=== PATIENT | female | born 1965 | race Caucasian/White ===

== ENCOUNTER 2025-03-12 07:53 | Outpatient (REF) | payer MEDICARE, MEDICAID, SELFPAY ==
--- NOTE | ~2025-03-12 | US_ITS ---
EXAMINATION: US LOWER EXTREMITY VENOUS (REFLUX EXAM), BILATERAL CLINICAL INFORMATION: Edema, lower extremities. COMPARISON: None. TECHNIQUE: Color flow triplex imaging and compression Doppler was performed to evaluate both the deep and the superficial systems bilaterally. To evaluate the superficial system, the examination was performed in the upright position. Color-flow Doppler ultrasound and compression ultrasound were utilized. In addition, maneuvers were utilized to demonstrate reflux. FINDINGS: 1. DEEP VENOUS ULTRASOUND OF THE RIGHT LOWER EXTREMITY: Common Femoral Vein: Compressible, normal respiratory variation and augmented flow. Femoral Vein: Compressible, normal color flow and augmentation. Popliteal Vein: Compressible, normal augmentation. Deep Reflux: There is no evidence of reflux in the deep system in either the common femoral vein, superficial femoral or the popliteal vein. There is no evidence of a Langley's cyst. 2. SUPERFICIAL ULTRASOUND WITH DOPPLER OF RIGHT LOWER EXTREMITY: GREAT SAPHENOUS VEIN: Saphenofemoral Junction: 0.7 cm; Reflux: 0 ms Proximal Thigh: 0.7 cm; Reflux: 0 ms Mid Thigh: 0.3 cm; Reflux: 0 ms Distal Thigh: 0.3 cm; Reflux: 0 ms At Knee: 0.2 cm; Reflux: 0 ms Proximal Calf: 0.2 cm; Reflux: 0 ms Mid Calf: 0.2 cm; Reflux: 0 ms Distal Calf: 0.2 cm; Reflux: 0 ms DUPLICATED MEDIAL GREAT SAPHENOUS VEIN: Diameter: None imaged Reflux: NA DUPLICATED LATERAL GREAT SAPHENOUS VEIN: Diameter: None imaged Reflux: NA SMALL SAPHENOUS VEIN: Saphenopopliteal Junction: 0.15 cm; Reflux: 0 ms Proximal: 0.12 cm; Reflux: 0 ms Distal: 0.2 cm; Reflux: 0 ms VEIN OF GIACOMINI: Size: 0.15 cm. Reflux: NA PERFORATORS: Location: Proximal to mid calf. Size: 0.1-0.2 cm. Reflux: NA VARICOSITIES: Location: Mid thigh. Size: 0.4 cm. Reflux: NA 3. DEEP VENOUS ULTRASOUND OF THE LEFT LOWER EXTREMITY: Common Femoral Vein: Compressible, normal respiratory variation and augmented flow. Femoral Vein: Compressible, normal color flow and augmentation. Popliteal Vein: Compressible, normal augmentation. Deep Reflux: There is no evidence of reflux in the deep system in either the common femoral vein, superficial femoral or the popliteal vein. There is no evidence of a Langley's cyst. 4. SUPERFICIAL ULTRASOUND WITH DOPPLER OF LEFT LOWER EXTREMITY: GREAT SAPHENOUS VEIN: Saphenofemoral Junction: 0.9 cm; Reflux: 0 ms Proximal Thigh: 0.4 cm; Reflux: 0 ms Mid Thigh: 0.2 cm; Reflux: 0 ms Distal Thigh: 0.2 cm; Reflux: 0 ms At Knee: 0.2 cm; Reflux: 0 ms Proximal Calf: 0.2 cm; Reflux: 0 ms Mid Calf: 0.13 cm; Reflux: 0 ms Distal Calf: 0.2 cm; Reflux: 0 ms DUPLICATED MEDIAL GREAT SAPHENOUS VEIN: Diameter: None imaged Reflux: NA DUPLICATED LATERAL GREAT SAPHENOUS VEIN: Diameter: None imaged. Reflux: NA SMALL SAPHENOUS VEIN: Saphenopopliteal Junction: 0.2 cm; Reflux: 0 ms Proximal: 0.2 cm; Reflux: 0 ms Distal: 0.2 cm; Reflux: 0 ms VEIN OF GIACOMINI: Size: NA Reflux: NA PERFORATORS: Location: Mid calf. Size: 0.2 cm. Reflux: NA VARICOSITIES: Location: None Imaged Size: NA Reflux: NA US/US venous insuf bilat IMPRESSION: Right: No venous insufficiency. Perforators without reflux, proximal to mid calf. 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 Left: No venous insufficiency. Perforators without reflux, mid calf. Electronically signed by: Enrico Gomez MD 03/12/2025 09:22 AM EDT
--- OUTSIDE RECORDS SUMMARY | 2025-03-12 07:56 | XMS_ITS ---
Author Name [facility] Organization Unknown Care Team Organization Name Specialty Phone Email Start Date End Da te [facility] Marie Licona Primary [facility] 01/21/20232023 [facility] Edouard Ribeiro Primary [facility] 06/22/20222023
--- OUTSIDE RECORDS SUMMARY | 2025-03-12 07:56 | XMS_ITS | Clinical Summary ---
Author Organization [facility] Address [address] [place] [address] Phone Care Team Providers Care Dural Mechanic Name Role Phone Cindy Ribeiro MD Primary Care Provider [phone] Allergies No known active allergies Medications albuterol HFA (PROAIR HFA ; PROVENTIL HFA ; VENTOLIN HFA) 90 mcg/actuation inhaler Inhale 2 Puffs into the lungs every 4 hours as needed for Cough or Wheezing. 4 Active cloNIDine (CATAPRES) 0.1 mg tablet TAKE 1 TABLET BY MOUTH EVERYDAY AT BEDTIME 3 Active ipratropium-alb uteroL (DUONEB) 0.5-2.5 mg/3 mL nebulizer solution Inhale 3 mL into the lungs 4 times daily. 2 Active cyclobenzaprine (FLEXERIL) 10 mg tablet Take 1 tablet (10 mg total) by mouth at bedtime. Take 0.5-1 Tablets by mouth at bedtime as needed for Muscle spasms. 30 tablet 1 5 Active fluticasone propionate (FLONASE) 50 mcg/actuation nasal spray Shake gently. Before first use, prime pump. After use, clean tip and replace cap.2 Sprays by Each Nare route daily for 360 days. 48 g 2 5 Active cholecalciferol (VITAMIN D-3) 50 mcg (2,000 unit) tablet Take 1 tablet (2,000 Units total) by mouth 1 (one) time each day. Active magnesium oxide (MAG-OX) 400 mg magnesium tablet Take 1 tablet (400 mg total) by mouth 1 (one) time each day. Active zinc acetate 50 mg (zinc) capsule Take by mouth. Activ e potassium chloride (KLOR-CON M10) 10 mEq CR tablet Take 1 tablet (10 mEq total) by mouth 1 (one) time each day. Tablet may be swallowed whole (do not crush/chew/suck on) OR broken in half and each half swallowed separately OR dissolved (whole tablet) in ~4 ounces of water (allow ~2 minutes to dissolve, stir well and administer immediately). Active ascorbic acid (Vitamin C) 250 mg tablet Take 1 tablet (250 mg total) by mouth 1 (one) time each day. 90 each 1 5 04/06/20 25 Active amLODIPine (NORVASC) 2.5 mg tablet TAKE 1 TABLET BY MOUTH EVERY DAY 90 tablet 1 5 Active cyanocobalamin (VITAMIN B-12) 1,000 mcg tablet TAKE 1 TABLET BY MOUTH DAILY 90 tablet 1 5 Active acetic acid-hydrocorti sone (VOSOL-HC) otic solution INSTILL 3 DROPS INTO EACH EAR TWICE DAILY 10 mL 5 Active diclofenac (VOLTAREN) 75 mg EC tablet Take 1 tablet (75 mg total) by mouth 2 (two) times a day if needed (pain). Do not crush, chew, or split. 90 tablet 5 02/08/20 26 Active semaglutide (Wegovy) 0.25 mg/0.5 mL injection penIndications: Essential (primary) hypertension,Cl ass 3 obesity Inject 0.25 mg under the skin every 7 (seven) days. 2 mL 1 5 04/08/20 25 Active clonazePAM (KlonoPIN) 0.5 mg tablet Take 1 Tablet by mouth daily. 28 tablet 5 Active DULoxetine (CYMBALTA) [address] capsule Take 1 capsule (20 mg total) by mouth 1 (one) time each day. Do not crush or chew. 90 each 1 5 08/07/20 25 Active Active Problems Problem Noted Date Diagnosed Date Palpitations 10/15/2022 Overview (05/25/2024): Echocardiogram Last Assessment & Plan: We will order an echocardiogram given her palpitations and shortness of breath. This is not explained by asthma. Migraine 05/05/2022 Anxiety disorder 10/12/2021 Fibromyalgia 10/12/2021 Gastroesophageal reflux disease without esophagi tis 10/12/2021 Osteoporosis 10/12/2021 Essential (primary) hypertension 09/30/2021 Moderate persistent asthma 09/30/2021 Overview (05/25/2024): Last Assessment & Plan: Asthma is mostly mild persisting. Continue with Singulair 1 tablet every day We will discontinue Breo/Ellipta Continue with albuterol as needed Return to clinic in 1 year Ear deformity, acquired 06/18/2021 Abdominal pannus 05/11/2021 Intertrigo 05/11/2021 Obesity 05/11/2021 Trigger finger 03/02/2011 Encounters Date Type Department Care Team Description 02/11/2025 Telephone Pediatrics - [facility] [address] [place] [address] Cindy Ribeiro MD Med Refill 02/11/2025 [facility] [place] [address] Cindy Ribeiro MD Medication Problem 02/08/2025 1:00 PM EDT Office Visit Bariatric Surgery - [address] [place] [address] Nancy Murray PA Class 3 severe obesity due to excess calories with serious comorbidity and body mass index (BMI) of 40.0 to 44.9 in adult (CMS/HCC V24, CMS/HCC V28) (Primary Dx); Snoring 02/08/2025 Telephone Pediatrics - [facility] [address] [place] [address] Cindy Ribeiro MD EXTERNAL ORDER (EXTERNAL ORDER) 02/08/2025 [facility] [address] [place], [place] [address] [place] [address] Cindy Ribeiro MD Medication Problem 02/08/2025 Telephone Pediatrics - [address] [phone] Cindy Ribeiro MD Referral 02/08/2025 Telephone [facility] - [address] [phone] Cindy Ribeiro MD Prior Authorization 02/07/2025 1:00 PM EDT Office Visit Internal Medicine - [address] [phone] Marcus Cortes PA Lumbar radiculopathy (Primary Dx); Peripheral edema; Stiffness of hand joint, unspecified laterality; Essential (primary) hypertension; Class 3 obesity; Anxiety disorder, unspecified type 01/01/2025 9:00 AM EDT Treatment Outpatient [address] [phone] Kennedy Crain, PT Left hip pain (Primary Dx) 12/27/2024 9:00 AM EDT Treatment Outpatient [address] [phone] Suzy Tanner, PHOTO OPTICS TECHNICIAN Left hip pain (Primary Dx) 12/25/2024 9:00 AM EDT Treatment Outpatient [address] [phone] Suzy Tanner, PHOTO OPTICS TECHNICIAN Left hip pain (Primary Dx) 12/20/2024 10:00 AM EDT Treatment Outpatient [address] [phone] Angy Escalante, PHOTO OPTICS TECHNICIAN Left hip pain (Primary Dx) 12/14/2024 10:30 AM EDT Treatment Outpatient [address] [phone] Suzy Tanner, PHOTO OPTICS TECHNICIAN Left hip pain (Primary Dx) 12/11/2024 10:30 AM EDT Treatment Outpatient [address] [phone] Kennedy Crain, PT Left hip pain (Primary Dx) from Last 3 Months Immunizations Name Administration Dates Next Due Influenza Quadrivalent, 0.5m l, preservative free (Fluarix; FluLaval; Fluzone) ages 6mo and older (Afluria) 3yo and older 05/20/2021 Influenza trivalent, 0.5mL, preservative free (Fluarix; FluLaval; Fluzone) ages 6mo and older (Afluria) 3 years and older 05/24/2024 Influenza, Unspecified 05/24/2024,05/23/2020 Influenza, live, intranasal, quadrivalent (FluMist) 2yo to less than 50yo 06/01/2017 Xspand SARS-CoV-2 COVID-19, mRNA, LNP-S, preservative free 06/03/2021,11/28/2020,11/07/2020 Td, Unspecified 01/06/2018 Surgical History Surgery Date Site/Laterality Comments TONSILLECTOMY PROCEDURE: HISTORICAL TONSILLECTOMY CARPAL TUNNEL RELEASE PROCEDURE: VA NEUROPLASTY &/TRANSPOS MEDIAN NRV CARPAL TUNNE COLONOSCOPY 2018 PROCEDURE: OUTSIDE COLONOSCOPY Medical History Medical History Date Comments Essential (primary) hypertension DX:Essential (primary) hypertension Mild intermittent asthma, uncomplicated DX:Mild intermittent asthma, uncomplicated Fibromyalgia 2014 DX:Fibromyalgia Osteoarthritis DX:Osteoarthriti s Depression DX:Depression Anxiety disorder DX:Anxiety diso rder Migraines DX:Migraines Social History Tobacco Use Types Packs/Day Years Used Date Smoking Tobacco: Former Cigarettes Q uit: 08/15/2009 Smokeless Tobacco: Never Tobacco Cessation:Counseling Given: Not Answered Alcohol Use Standard Drinks/Week Comments Not Currently 0 (1 standard drink = 0.6 oz pur e alcohol) Housing Instability Answer Date Recorde d Are you worried that in the next 2 months you may not have stable housing? No 10/01/2024 Food Access & Nutrition Answer Date Rec orded Do you have access to a vari ety of food including fruits and vegetables? Yes 10/01/2024 Access to Healthcare Answer Date Record ed Within the last 3 months, ho w many times did you visit the emergency department for your medical care? 1 10/01/2024 Health Literacy Answer Date Recorded How often do you need to hav e someone help you when you read instructions, pamphlets, or other written material from your doctor or pharmacy? Rarely 10/01/2024 Caregiver: How often do you need to have someone help you when you read instructions, pamphlets, or other written material from your doctor or pharmacy? Not on file 10/01/2024 Financial Risk Answer Date Recorded How hard is it for you to pa y for the very basics like food, housing, medical care, and air conditioning / heating? Hard 10/01/2024 Transportation Answer Date Recorded Has the lack of transportati on kept you from meetings, work, or from getting things needed for daily living? No Has the lack of transportati on kept you from medical appointments or from getting medications? No 10/01/2024 Social Isolation Answer Date Recorded How often do you feel lonely or isolated from th ose around you? Never 10/01/2024 Food Risk Answer Date Recorded Within the past 12 months we worried whether our food would run out before we got money to buy more. Unable to respond 025 Within the past 12 months th e food we bought just didn't last and we didn't have money to get more. Sometimes true 09/15 Dependent Care Answer Date Recorded Do you need help finding or paying for care for your loved ones. For example, child nutrition assistant or elderly care for an older adult? Yes 10/01/2024 Education Answer Date Recorded Do you think completing more education or training, like finishing a GED, going to college, or learning a trade, would be helpful for you? No 10/01/2024 Employment and Income Answer Date Recor ded During the last four weeks, have you been actively looking for work? No 10/01/2024 Living Situation Answer Date Recorded What is your living situation? 0 10/01/2024 Comments No Sex and Gender Information Value Date Recorded Sex Assigned at Female 11/17/2022 2:18 PM EDT Legal Sex Female 10:46 PM EST Gender Identity Female 11/17/2022 2:18 PM EDT Sexual Orientation Not on file Obstetrics History Last Filed Vital Signs Vital Sign Reading Time Taken Comments Blood Pressure 130/78 02/08/2025 1:04 PM EDT Pulse 76 02/08/2025 1:04 PM EDT Temperature 36.6 C (97.8 F) 02/08/2025 1:04 PM EDT Respiratory Rate 16 02/07/2025 1:04 PM EDT Oxygen Saturation 96% 11/03/2024 9:39 AM EDT Inhaled Oxygen Concentration - - Weight 99.8 kg (220 lb) 02/08/2025 1:04 PM EDT Height 154.9 cm (5' 1 ) 02/08/2025 1:04 PM EDT Body Mass Index 41.57 02/08/2025 1:04 PM EDT Plan of Treatment Upcoming Encounters Date Type Department Care Team (Late st Contact Info) Description 03/12/2025 2:45 PM EDT Office Visit Bariatric Surgery - [place] [address] [facility] [address] [place] [phone] Nancy Murray PA [address] [facility] [place] [address] [place] [address] 03/26/2025 10:00 AM EDT Appointment [facility] Ultrasound [address] [place] [phone] 04/08/2025 11:30 AM EDT Office Visit Internal Medicine - [place] [address] [place] [address] Marcus Cortes PA [address] [place] [address] Health Maintenance Due Date Last Done Comments Pneumococcal Vaccine: 50+ Years (1 of 2 - PCV) 1982 Zoster Vaccines (1 of 2) 1982 Cervical Cancer Screening: Pap Smear 1984 Colorectal Cancer Screening: Colonoscopy 07/25/2022 HIV Screening 07/25/2022 Hepatitis C Screening 07/25/2022 Medicare Annual Wellness Visit 07/25/2022 RSV Immunization Adult Patients (1 - Risk 60-74 years 1-dose series) 2023 COVID-19 Vaccine ( season) 2024 06/03/2021, 11/28/2020, 11/07/2020 Influenza Vaccine (#1) 2025 , 05/24/2024, 05/20/2021, Additional history exists Social Influencers of Health Screening 10/01/2025 10/01/2024 Hypertension/CHF/CAD Annual BMP Blood Test 02/07/2026 02/07/2025, 11/03/2024, 05/24/2024, Additional history exists Breast Cancer Screening 03/21/2026 03/21/20 24, 03/18/2023, 10/23/2021, Additional history exists DTaP,Tdap,and Td Vaccines (2 - Td or Tdap) 01/07/2028 01/06/2018 Cholesterol Screening (Lipid Panel) 05/24/2029 05/24/2024, 05/24/2024 Osteoporosis Screening (Bone Density Screening) 12/19/2031 12/18/2021, 04/27/2018 Depression Screening Completed 10/01/2024 HIB Vaccines Aged Out No longer eligi ble based on patient's age to complete this topic HPV Vaccines Aged Out No longer eligi ble based on patient's age to complete this topic Hepatitis A Vaccines Aged Out No long er eligible based on patient's age to complete this topic Hepatitis B Vaccines Aged Out No long er eligible based on patient's age to complete this topic IPV Vaccines Aged Out No longer eligi ble based on patient's age to complete this topic MMR Vaccines Aged Out No longer eligi ble based on patient's age to complete this topic Meningococcal ACWY Vaccine Aged Out N o longer eligible based on patient's age to complete this topic Meningococcal B Vaccine Aged Out No l onger eligible based on patient's age to complete this topic RSV Immunization Patients Under 20 months Aged Out No longer eligible based on patient's age to complete this topic Varicella Vaccines Aged Out No longer eligible based on patient's age to complete this topic Procedures Procedure Name Priority Date/Time Associated Diagnosis Comments SEDIMENTATION RATE Routine 02/07/2025 1: 36 PM EDT Stiffness of hand joint, unspecified laterality RHEUMATOID FACTOR Routine 02/07/2025 1: 36 PM EDT Stiffness of hand joint, unspecified laterality B-TYPE NATRIURETIC PEPTIDE Routine 02/07/2025 1:36 PM EDT Peripheral edema COMPREHENSIVE METABOLIC PANEL Routine 02/07/2025 1:36 PM EDT Essential (primary) hypertension LIPID PANEL Routine 05/24/2024 BECCA SCREENING DIGITAL Routine 03/21/2024 4:30 PM EDT Encounter for screening mammogram for malignant neoplasm of breast DXA BONE DENSITY STUDY 1+ SITS AXIAL SKEL Routine 12/18/2021 10:53 AM EDT Age-related osteoporosis without current pathological fracture from Last 3 Months or Most Recently Relevant to Health Maintenance Results * (ABNORMAL) Sedimentation rate (02/07/2025 1:36 PM EDT) Pathologist [facility] [place] Sed Rate 34(H) 0 - 30 mm/hr LAB HEMETOLOGY METHOD 02/07/2025 3:[address] [facility] Blood Venous blood specimen / Unknown Venipuncture / Unknown 02/07/2025 1:36 PM EDT 02/07/2025 1:36 PM EDT us Marcus WILCOX LAB BLOOD ORDERABLES Fi nal Result [facility] [address] [place] [address], [place] [phone] * Rheumatoid factor (02/07/2025 1:36 PM EDT) Pathologist [facility] [place] Rheumatoid Factor <10.0 <15.0 I Unit/mL LAB CHEMISTRY METHOD 02/07/2025 6:[address] [facility] Blood Venous blood specimen / Unknown Venipuncture / Unknown 02/07/2025 1:36 PM EDT 02/07/2025 1:36 PM EDT us Marcus WILCOX LAB BLOOD ORDERABLES Fi nal Result Performing Organization Address [facility]/ZIP Co de Phone Number [facility] [address] [place] [address], [place] [phone] * B-type natriuretic peptide (02/07/2025 1:36 PM EDT) BNP 12 <=100 pcg/mL LAB CHEMISTRY METHOD 02/07/2025 5:[address] [facility] Blood Venous blood specimen / Unknown Venipuncture / Unknown 02/07/2025 1:36 PM EDT 02/07/2025 1:36 PM EDT Marcus WILCOX LAB BLOOD ORDERABLES Fi nal Result Performing Organization Address [facility]/ZIP Co de Phone Number [facility] [address] [place] [address], [place] [phone] * (ABNORMAL) Comprehensive metabolic panel (02/07/2025 1:36 PM EDT) [facility] Sodium 139 133 - 145 mmol/L LAB CHEMISTRY METHOD 02/07/2025 6:32 PM [facility] Potassium 3.8 3.5 - 5.5 mmol/L LAB CHEMISTRY METHOD 02/07/2025 6:32 PM [facility] Chloride 107 96 - 110 mmol/L LAB CHEMISTRY METHOD 02/07/2025 6:32 PM [facility] CO2 25 21 - 32 mmol/L LAB CHEMISTRY METHOD 02/07/2025 6:32 PM [facility] Anion Gap 7 3 - 11 LAB CHEMISTRY METHOD 02/07/2025 6:32 PM [facility] Glucose 107(H) 70 - 100 mg/dL LAB CHEMISTRY METHOD 02/07/2025 6:32 PM [facility] BUN 8 5 - 25 mg/dL LAB CHEMISTRY METHOD 02/07/2025 6:32 PM [facility] Creatinine 0.76 0.50 - 1.10 mg/dL LAB CHEMISTRY METHOD 02/07/2025 6:32 PM [facility] eGFR 89 >=60 mL/min/1. 73m2 LAB CHEMISTRY METHOD 02/07/2025 6:32 PM [facility] Comment:Calculation based on the Chronic Kidney Disease Epidemiology Collaboration (CKD-EPI) equation refit without adjustment for race. BUN/Creatinine Ratio 10.5 LAB CHEMISTRY METHOD 02/07/2025 6:32 PM [facility] Calcium 9.4 8.5 - 10.5 mg/dL LAB CHEMISTRY METHOD 02/07/2025 6:32 PM [facility] AST (SGOT) 9(L) 10 - 42 unit/L LAB CHEMISTRY METHOD 02/07/2025 6:32 PM [facility] ALT (SGPT) 17 10 - 60 unit/L LAB CHEMISTRY METHOD 02/07/2025 6:32 PM [facility] Alkaline Phosphatase 98 42 - 121 unit/L LAB CHEMISTRY METHOD 02/07/2025 6:32 PM [facility] Total Protein 7.4 6.0 - 8.0 g/dL LAB CHEMISTRY METHOD 02/07/2025 6:32 PM [facility] Albumin 3.6 3.2 - 5.0 g/dL LAB CHEMISTRY METHOD 02/07/2025 6:32 PM [facility] Total Bilirubin 0.4 0.0 - 1.4 mg/dL LAB CHEMISTRY METHOD 02/07/2025 6:32 PM [facility] Blood Venous blood specimen / Unknown Venipuncture / Unknown 02/07/2025 1:36 PM EDT 02/07/2025 1:36 PM EDT Marcus WILCOX LAB BLOOD ORDERABLES Fi nal Result Performing Organization Address City/State/[place] Co de Phone Number [facility] [address] [place] [address], * (ABNORMAL) Lipid panel (05/24/2024) LDL/HDL Ratio 4 0 - 4 Triglycerides 191(A) 0 - 150 mg/dL Cholesterol 194 0 - 200 mg/dL HDL 51 >=40 mg/dL LDL Cholesterol 105(A) 0 - 100 mg/dL Blood Venous blood specimen / Unknown us Historical Provider LAB BLOOD ORDERABLES Rach l Result * BECCA SCREENING DIGITAL (03/21/2024 4:30 PM EDT) Anatomical Region Laterality Modality Mammography 03/21/2024 2:02 PM EDT Narrative 03/21/2024 4:30 PM EDT [facility] Diagnostic Imaging Department [address] [place], [place] [id number] Patient: TIFFANY JACOB D.O.B./Age/Sex: 1965 - 58 - F Unit#: [id number] Location/Status: SPDIMAM/REG CLI Mnemonic/Ordering Site: DIGSC/SPMAM Ordering Physician: CINDY RIBEIRO MD Becca Screening Digital - 03/21/24 - 1412 Report Status:Signed EXAM: Becca Screening Digital EXAM DATE AND TIME: 03/21/2024 2:16 PM HISTORY: Screening. COMPARISON: 03/22/23, 03/18/23, 10/27/21, 10/23/21, 07/04/20, 04/23/19 TECHNIQUE: Bilateral digital breast tomosynthesis was performed in the CC and MLO projections. Computer aided detection with [employer] 3D 3.1 was employed. TISSUE DENSITY: b. There are scattered areas of fibroglandular density. FINDINGS: The parenchymal pattern remains nodular. A 12 mm round mass with circumscribed margins is seen in the 7:00 retroareolar area of the left breast, without associated microcalcifications. Targeted ultrasound is recommended for further assessment. A 10 mm circumscribed nodule directly behind the left nipple is unchanged, shown previously to represent a cyst by ultrasound. No grouped microcalcifications or areas of architectural distortion are seen. Vascular calcification is present. The skin is unremarkable. IMPRESSION: 1. Developing 12 mm left breast mass, for which targeted ultrasound is recommended. The patient will be called back. 2. Stable mammographic appearance of the right breast. No evidence of malignancy is seen. BI-RADS: Category 0: Incomplete - Need Additional Imaging Evaluation RECOMMENDATION(S): 1: Ultrasound follow-up LEFT Dictating Physician: SPRING RUEDA MD Electronically Signed by: SPRING RUEDA MD Dic Date/Time: 03/21/24 1628 Sign date/Time: 03/21/24 1630 Procedure Note Spring Rueda MD - 05/30/2024 [facility] Diagnostic Imaging Department [address] [place] [address] Patient: TIFFANY JACOB D.O.B./Age/Sex: 1965 - 58 - F Unit#: [id number] Location/Status: SPDIMAM/REG CLI Mnemonic/Ordering Site: DIGSC/SPMAM Ordering Physician: CINDY RIBEIRO MD Becca Screening Digital - 03/21/24 - 1415 Report Status:Signed EXAM: Becca Screening Digital EXAM DATE AND TIME: 03/21/2024 2:16 PM HISTORY: Screening. COMPARISON: 03/22/23, 03/18/23, 10/27/21, 10/23/21, 07/04/20, 04/23/19 TECHNIQUE: Bilateral digital breast tomosynthesis was performed in the CCand MLO projections. Computer aided detection with [employer] 3D 3.1was employed. TISSUE DENSITY: b. There are scattered areas of fibroglandular density. FINDINGS: The parenchymal pattern remains nodular. A 12 mm round mass withcircumscribed margins is seen in the 7:00 retroareolar area of the left breast,without associated microcalcifications. Targeted ultrasound is recommended forfurther assessment. A 10 mm circumscribed nodule directly behind the left nipple isunchanged, shown previously to represent a cyst by ultrasound. No grouped microcalcifications or areas of architectural distortion areseen. Vascular calcification is present. The skin is unremarkable. IMPRESSION: 1. Developing 12 mm left breast mass, for which targeted ultrasound is recommended. The patient will be called back. 2. Stable mammographic appearance of the right breast. No evidence of malignancy is seen. BI-RADS: Category 0: Incomplete - Need Additional Imaging Evaluation RECOMMENDATION(S): 1: Ultrasound follow-up LEFT Dictating Physician: SPRING RUEDA MD Electronically Signed by: SPRING RUEDA MD Dic Date/Time: 03/21/24 1628 Sign date/Time: 03/21/24 1630 us Cindy Ribeiro MD IMG BI PROCEDURES Final Result * DXA BONE DENSITY STUDY 1+ SITS AXIAL SKEL (12/18/2021 10:53 AM EDT) Anatomical Region Laterality Modality Bone Densitometr y 11/04/2021 11:2 9 AM EDT Narrative 12/18/2021 3:17 PM EDT BONE DENSITY Lumbar Spine T-score is -1.6 (SD relative to 20-29 y/o adult) Z-score is -0.2 (SD relative to age matched peers) This is consistent with osteopenia by criteria defined by the WHO. Left Hip T-score is +0.4 Z-score is +1.3 This is normal by criteria defined by the WHO. Impression: Based on the World Health Organization criteria, Tiffany Astudillo should be classified as having osteopenia. This patient has a 9% risk of major osteoporotic fracture and a 0.2% risk of hip fracture over the next 10 years. (World Health Organization Fracture Risk Assessment) [facility] Department of Internal Medicine recommends using National Osteoporosis Foundation (NOF) guidelines in treatment decisions related to osteoporosis. NOF guidelines suggest considering treatment for postmenopausal women and men aged 50 or older presenting with the following: History of hip or vertebral fracture. T-score less than or equal to -2.5 (DXA) at the femoral neck, total hip, or spine, after appropriate evaluation to exclude secondary causes. Low bone mass (T-score between -1.0 and -2.5 at the femoral neck or spine) AND a 10-year probability of a hip fracture greater than or equal to 3% OR a 10-year probability of a major osteoporosis-related fracture greater than or equal to 20% based on the [place]-adapted WHO algorithm Please note that all treatment decisions require clinical judgment and consideration of individual patient factors, including patient preferences, co-morbidities, previous drug use, risk factors not captured in the FRAX model (e.g., frailty, falls, vitamin D deficiency, increased bone turnover, interval significant decline in bone density) and possible under- or over-estimation of fracture risk by FRAX. Procedure Note Iliana Brannon MD - 08/03/2022 BONE DENSITY Lumbar Spine T-score is -1.6 (SD relative to 20-29 y/o adult) Z-score is -0.2 (SD relative to age matched peers) This is consistent with osteopenia by criteria defined by the WHO. Left Hip T-score is +0.4 Z-score is +1.3 This is normal by criteria defined by the WHO. Impression: Based on the World Health Organization criteria, Tiffany Astudillo should beclassified as having osteopenia. This patient has a 9% risk of majorosteoporotic fracture and a 0.2% risk of hip fracture over the next 10years. (World Health Organization Fracture Risk Assessment) [facility] Department of Internal Medicine recommendsusing National Osteoporosis Foundation (NOF) guidelines in treatmentdecisions related to osteoporosis. NOF guidelines suggest consideringtreatment for postmenopausal women and men aged 50 or older presentingwith the following: History of hip or vertebral fracture. T-score less than or equal to -2.5 (DXA) at the femoral neck, total hip,or spine, after appropriate evaluation to exclude secondary causes. Low bone mass (T-score between -1.0 and -2.5 at the femoral neck or spine)AND a 10-year probability of a hip fracture greater than or equal to 3% ORa 10-year probability of a major osteoporosis-related fracture greaterthan or equal to 20% based on the [place]-adapted WHO algorithm Please note that all treatment decisions require clinical judgment andconsideration of individual patient factors, including patientpreferences, co-morbidities, previous drug use, risk factors not capturedin the FRAX model (e.g., frailty, falls, vitamin D deficiency, increasedbone turnover, interval significant decline in bone density) and possibleunder- or over-estimation of fracture risk by FRAX. Amie Thomas MD IM DXA PROCEDURES Final Result from Last 3 Months or Most Recently Relevant to Health Maintenance Insurance [place]ICA[place] - [place] [employer] MEDICARE ADVANTAGE Care Teams Dural Mechanic Relationship Specialty Start Date End Date Cindy Ribeiro MD [address] [place] [address] [place] [id number] PCP - General Internal Medicine 07/02/24
== END 2025-03-12 07:54 | disposition home or self-care (01) ==
LOC: HO.US 07:53
PROVIDERS: PCP Physician Assistant; Visit Provider Physician Assistant
DX: R60.0 Localized edema (principal)
CPT/HCPCS: 93970

== ENCOUNTER → 2025-03-12 07:58 | Outpatient (BNV) | payer MEDICARE, MEDICAID, SELFPAY | PROVIDERS: PCP Physician Assistant; Visit Provider Radiology Diagnostic Radiology | DX: R22.43 Localized swelling, mass and lump, lower limb, bilateral (principal) | CPT/HCPCS: 93970 ==

== ENCOUNTER → 2025-04-07 19:30 | Outpatient (REF) | payer MEDICARE, MEDICAID, SELFPAY | LOC: HO.SL 19:30 | PROVIDERS: PCP Physician Assistant; Visit Provider Physician Assistant | DX: G47.33 Obstructive sleep apnea (adult) (pediatric) (principal); R06.83 Snoring; R40.0 Somnolence | CPT/HCPCS: 95810 ==

== ENCOUNTER → 2025-04-07 19:30 | Outpatient (BNV) | payer MEDICARE, MEDICAID, SELFPAY | PROVIDERS: PCP Physician Assistant; Visit Provider Internal Medicine | DX: G47.33 Obstructive sleep apnea (adult) (pediatric) (principal); R06.83 Snoring | CPT/HCPCS: 95810 ==